=== PATIENT | male | born 1950 | race Caucasian/White ===

== ENCOUNTER 2020-05-03 12:23 | Emergency (ER) | payer BC ==
--- NOTE | 2020-05-03 13:02 | EDM.PDOC ---
ED HPI GENERAL MEDICAL PROBLEM - General Chief Complaint: Respiratory Problem Stated Complaint: BAD COUGH, Time Seen by Provider: 05/03/20 12:25 Source of Information: Reports: Patient History Limitations: Reports: No Limitations - History of Present Illness INITIAL COMMENTS - FREE TEXT/NARRATIVE: Patient presents with cough for a week and fever for a couple days. He vomited once this morning when he ate a pancake. He says he usually gets pneumonia once a year that requires hospitalization. He feels he has pneumonia now. Temp has been up to 101. - Related Data Allergies Allergy/AdvReac Type Severity Reaction Status Date / Time milk Allergy Vomiting Verified 05/03/20 12:46 Past Medical History - Past Surgical History HEENT Surgical History: Reports: Other (See Below) Other HEENT Surgeries/Procedures: Cornea transplant GI Surgical History: Reports: Appendectomy Musculoskeletal Surgical History: Reports: Shoulder Surgery Social & Family History - Tobacco Use Tobacco Use Status *Q: Never Tobacco User - Recreational Drug Use Recreational Drug Use: No ED ROS GENERAL - Review of Systems Review Of Systems: See Below Constitutional: Reports: Fever HEENT: Denies: Throat Pain, Vision Change Respiratory: Reports: Cough. Denies: Shortness of Breath, Wheezing Cardiovascular: Denies: Chest Pain, Lightheadedness, Syncope GI/Abdominal: Reports: Vomiting (just once). Denies: Abdominal Pain, Constipation, Diarrhea : Reports: No Symptoms Musculoskeletal: Reports: No Symptoms Skin: Denies: Cyanosis, Jaundice, Mottled, Pallor, Diaphoresis Neurological: Denies: Confusion, Dizziness, Seizure, Syncope, Trouble Speaking, Difficulty Walking Psychiatric: Denies: Agitation, Anxiety, Confusion ED EXAM, GENERAL - Physical Exam Exam: See Below Exam Limited By: No Limitations General Appearance: Alert, WD/WN, No Apparent Distress Eye Exam: Bilateral Eye: EOMI, Normal Inspection, PERRL Ears: Normal External Exam, Hearing Grossly Normal Nose: Normal Inspection, No Blood Throat/Mouth: Normal Inspection, Normal Lips, Normal Voice, No Airway Compromise Head: Atraumatic, Normocephalic Neck: Normal Inspection, Full Range of Motion Respiratory/Chest: No Respiratory Distress, Lungs Clear, Normal Breath Sounds, No Accessory Muscle Use Cardiovascular: Regular Rate, Rhythm, No Murmur GI/Abdominal: Normal Bowel Sounds, Soft, Non-Tender Back Exam: Normal Inspection, Full Range of Motion. No: CVA Tenderness (L), CVA Tenderness (R) Extremities: Normal Inspection, Normal Range of Motion Neurological: Alert, Oriented, Normal Cognition, No Motor/Sensory Deficits Psychiatric: Normal Affect, Normal Mood Skin Exam: Warm, Dry, Intact, Normal Color, No Rash Course - Vital Signs Last Recorded V/S: Last Vital Signs Temp 99.6 F 05/03/20 12:44 Pulse 99 05/03/20 14:55 Resp 20 05/03/20 14:55 BP 112/65 05/03/20 14:55 Pulse Ox 95 05/03/20 14:55 - Orders/Labs/Meds Orders: Active Orders 24 hr Category Date Time Status CXR [Chest 2V] [CR] Stat Exams 05/03/20 12:55 Ordered CULTURE BLOOD [BC] Stat Lab 05/03/20 13:25 Received CULTURE BLOOD [BC] Stat Lab 05/03/20 13:40 Received Blood Culture x2 Reflex Set [OM.PC] Stat Oth 05/03/20 12:55 Ordered Labs: Laboratory Tests 05/03/20 05/03/20 05/03/20 Range/Units 12:55 13:25 13:25 WBC 9.00 (5.00-10.00) 10^3/uL RBC 5.01 (4.50-6.00) 10^6/uL Hgb 15.7 (13.0-17.0) g/dL Hct 46.9 (40.0-52.0) % MCV 93.6 H (82.0-92.0) fL MCH 31.3 H (27.0-31.0) pg MCHC 33.5 (32.0-36.0) g/dL RDW 12.8 (11.5-14.5) % Plt Count 209 (150-400) 10^3/uL MPV 9.4 (7.4-10.4) fL Immature Gran % (Auto) 0.1 (0.0-5.0) % Neut % (Auto) 86.9 H (50.0-70.0) % Lymph % (Auto) 8.2 L (20.0-40.0) % [place] % (Auto) 4.7 (2.0-8.0) % Eos % (Auto) 0.0 L (1.0-3.0) % Baso % (Auto) 0.1 (0.0-1.0) % Neut # (Auto) 7.82 H (2.50-7.00) 10^3/uL Lymph # (Auto) 0.74 L (1.00-4.00) 10^3/uL [place] # (Auto) 0.42 (0.10-0.80) 10^3/uL Eos # (Auto) 0.00 L (0.10-0.30) 10^3/uL Baso # (Auto) 0.01 (0.00-0.10) 10^3/uL Immature Gran # (Auto) 0.01 (0.00-0.50) 10^3/uL Sodium 140 (136-145) mmol/L Potassium 3.6 (3.3-5.3) mmol/L Chloride 101 (98-115) mmol/L Carbon Dioxide 27.4 (21.0-32.0) mmol/L Anion Gap 15.2 H (5-15) mmol/L BUN 15 (6-25) mg/dL Creatinine 1.27 H (0.51-1.17) mg/dL Est Cr Clr Drug Dosing 50.24 mL/min Estimated GFR (MDRD) 56 mL/min Glucose 103 H (75 - 99) mg/dL Calcium 8.3 L (8.7-10.3) mg/dL Total Bilirubin 0.5 (0.2-1.0) mg/dL AST 28 (15-37) U/L ALT 30 (12-78) U/L Alkaline Phosphatase 86 (46-116) IU/L Total Protein 7.4 (6.4-8.2) g/dL Albumin 3.51 (3.00-4.80) g/dL SARS CoV-2 RNA Rapid TISH Positive H (NEGATIVE) Meds: Medications Discontinued Medications Generic Name Dose Route Start Last Admin Trade Name Freq PRN Reason Stop Dose Admin Azithromycin 750 mg 05/03/20 15:01 Zithromax PO 05/03/20 15:02 ONETIME ONE Cefdinir 1,200 mg 05/03/20 15:01 Omnicef PO 05/03/20 15:02 ONETIME ONE - Re-Assessments/Exams Free Text/Narrative Re-Assessment/Exam: 05/03/20 15:18 CXR shows possible slight infiltrate but radiology read not available due to PACS issues. WBC is 9 with ANC of 7.82. Covid-19 is positive. Sats are running 90-92% on RA. Discussed case with Dr. Wheeler, and findings and treatment options with patient and his . Patient wants to stay at home and quarantine and will return if worsening. [facility] will call him Tuesday morning to check on him and set up home oxygen monitoring if needed. With the possibility of a bacterial pneumonia as well as the covid will treat with antibiotics also. Discussed details with patient and his . He is discharged to home in stable condition. Departure - Departure Time of Disposition: 15:15 Disposition: Home, Self-Care 01 Condition: Good Clinical Impression: COVID-19 CAP (community acquired pneumonia) Qualifiers: Laterality: unspecified laterality Qualified Code(s): J18.9 - Pneumonia, unspecified organism - Discharge Information Referrals: Venita Taveras PA-C [Primary Care Provider] - Forms: ED Department Discharge Additional Instructions: Drink at least 8 cups of water daily. Quarantine until cleared by your PCP. Take the antibiotics as directed. A nurse from the [facility] will call you Tuesday morning to check on you and discuss the option of using home oxygen monitoring. Go to ER or your PCP if worsening. Sepsis Event Note (ED) - Evaluation Sepsis Screening Result: Possible Sepsis Risk - Focused Exam Vital Signs: Vital Signs Temp Pulse Resp BP Pulse Ox 05/03/20 14:55 99 20 112/65 95 05/03/20 12:44 99.6 F 105 H 20 114/74 94 L - My Orders Last 24 Hours: My Active Orders 05/03/20 12:55 CXR [Chest 2V] [CR] Stat Blood Culture x2 Reflex Set [OM.PC] Stat 05/03/20 13:25 CULTURE BLOOD [BC] Stat 05/03/20 13:40 CULTURE BLOOD [BC] Stat - Assessment/Plan Last 24 Hours: My Active Orders 05/03/20 12:55 CXR [Chest 2V] [CR] Stat Blood Culture x2 Reflex Set [OM.PC] Stat 05/03/20 13:25 CULTURE BLOOD [BC] Stat 05/03/20 13:40 CULTURE BLOOD [BC] Stat
[2020-05-03 14:07] LABS: ANION GAP 15.2 mmol/L (5-15)
[2020-05-03] MEDS ORDERED: Cefdinir 300 MG Cap PO ONE (15:01)
[2020-05-03] MEDS ORDERED: Azithromycin 250 MG Tab PO ONE (15:01)
--- NOTE | 2020-05-03 16:07 | CR ---
[id number] RAD/RAD Chest PA And Lateral EXAM: RAD Chest PA And Lateral INDICATION: DYSPNEA. COMPARISON: 2008. DISCUSSION: Cardiomediastinal silhouette is normal in size and contour. Scattered patchy areas of nonmass like linear parenchymal opacification in both lungs most prominent in the mid and lower lungs. If there are signs of infection, this would be consistent with pneumonia, including sequela of Covid 19. No pleural effusion or pneumothorax. IMPRESSION: As above. Zeus Torres MD 05/03/20 2155 Thank you for allowing us to participate in the care of your patient.
== END 2020-05-03 15:30 | disposition home or self-care (01) ==
LOC: KA.ED 12:23
DX: U07.1 COVID-19 (principal); J12.89 Other viral pneumonia; Z91.011 Allergy to milk products; Z90.49 Acquired absence of other specified parts of digestive tract
CPT/HCPCS: 36415; 71046; 80053; 85025; 87040; 99284; 99284-25; A9270-GY; U0002

== ENCOUNTER 2020-05-06 20:45 | Emergency (ER) | payer BC ==
--- NOTE | 2020-05-06 22:53 | EDM.PDOC ---
ED HPI GENERAL MEDICAL PROBLEM - General Chief Complaint: General Stated Complaint: Decreased oxygen level Time Seen by Provider: 05/06/20 21:13 Source of Information: Reports: Patient History Limitations: Reports: No Limitations - History of Present Illness INITIAL COMMENTS - FREE TEXT/NARRATIVE: Patient presents with low oxygen sats and increased respiratory rate. He was in ER 3 days ago and tested positive for Covid but wasn't hypoxemic at that time and chose to go home and see how it went. Today he was set up with home oxygen sensors and for several hours this afternoon and evening was running from 83-87% continuously. He was instructed to come to ER by someone monitoring him from [employer]. He admits to feeling a little more short of breath than before. 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 - Related Data Allergies Allergy/AdvReac Type Severity Reaction Status Date / Time milk Allergy Vomiting Verified 05/06/20 20:57 Home Meds: Home Meds Azithromycin [Zithromax] 250 mg PO DAILY 05/06/20 [History] Cefdinir 300 mg PO BID 05/06/20 [History] Non-Formulary Medication [NF Drug] 20 mg PO DAILY 05/06/20 [History] Simvastatin [Zocor] 10 mg PO DAILY 05/06/20 [History] valACYclovir [Valtrex] 500 mg PO DAILY 05/06/20 [History] Past Medical History Cardiovascular History: Reports: High Cholesterol - Infectious Disease History Other Infectious Disease History: COVID-19 positive - Past Surgical History HEENT Surgical History: Reports: Other (See Below) Other HEENT Surgeries/Procedures: Cornea transplant GI Surgical History: Reports: Appendectomy Musculoskeletal Surgical History: Reports: Shoulder Surgery Social & Family History - Family History Family Medical History: Noncontributory - Tobacco Use Tobacco Use Status *Q: Former Tobacco User Used Tobacco, but Quit: Yes Month/Year Tobacco Last Used: 1969 - Caffeine Use Caffeine Use: Reports: None - Recreational Drug Use Recreational Drug Use: No ED ROS GENERAL - Review of Systems Review Of Systems: See Below Constitutional: Denies: Fever, Weakness HEENT: Denies: Ear Pain, Throat Pain, Vision Change Respiratory: Reports: Shortness of Breath. Denies: Cough Cardiovascular: Denies: Chest Pain, Lightheadedness, Syncope GI/Abdominal: Reports: Diarrhea. Denies: Abdominal Pain, Constipation, Nausea, Vomiting : Denies: Dysuria Musculoskeletal: Denies: Neck Pain, Shoulder Pain, Arm Pain, Back Pain Skin: Denies: Cyanosis, Jaundice, Mottled, Pallor, Diaphoresis Neurological: Denies: Confusion, Dizziness, Headache, Seizure, Syncope, Trouble Speaking, Difficulty Walking Psychiatric: Denies: Agitation, Anxiety, Confusion ED EXAM, GENERAL - Physical Exam Exam: See Below Exam Limited By: No Limitations General Appearance: Alert, WD/WN, No Apparent Distress Eye Exam: Bilateral Eye: EOMI, Normal Inspection, PERRL Ears: Normal External Exam, Hearing Grossly Normal Nose: Normal Inspection, No Blood Throat/Mouth: Normal Inspection, Normal Lips, Normal Voice, No Airway Compromise Head: Atraumatic, Normocephalic Neck: Normal Inspection, Full Range of Motion Respiratory/Chest: No Accessory Muscle Use, Crackles (mild in bilat bases), Wheezing (very slight and occasional) Cardiovascular: Normal Peripheral Pulses, Regular Rate, Rhythm Peripheral Pulses: 2+: Carotid (L), Carotid (R), Radial (L), Radial (R), Posterior Tibial (L), Posterior Tibial (R) GI/Abdominal: Normal Bowel Sounds, Soft, Non-Tender, No Organomegaly, No Distention Back Exam: Normal Inspection, Full Range of Motion. No: CVA Tenderness (L), CVA Tenderness (R) Extremities: Normal Inspection, Normal Range of Motion Neurological: Alert, Oriented, Normal Cognition, No Motor/Sensory Deficits Psychiatric: Normal Affect, Normal Mood Skin Exam: Warm, Dry, Intact, Normal Color, No Rash Course - Vital Signs Last Recorded V/S: Last Vital Signs Temp 98.2 F 05/06/20 22:30 Pulse 90 05/06/20 21:54 Resp 28 H 05/06/20 22:30 BP 142/90 H 05/06/20 21:54 Pulse Ox 96 05/06/20 22:30 - Orders/Labs/Meds Orders: Active Orders 24 hr Category Date Time Status CXR [Chest 2V] [CR] Stat Exams 05/06/20 21:36 Ordered Isolation [COMM] Routine Oth 05/06/20 21:06 Ordered - Re-Assessments/Exams Free Text/Narrative Re-Assessment/Exam: 05/06/20 22:55 CXR shows "extensive bilateral ground glass infiltrates consistent with acute viral infection." I discussed case with Dr. Leong, hospitalist at [facility] who accepted for transfer. Discussed findings and plan with patient who agreed. He is stable at discharge. Departure - Departure Time of Disposition: 22:53 Disposition: DC/[facility]fer to [facility] 02 Condition: Good Clinical Impression: Hypoxemia requiring supplemental oxygen, Pneumonia due to COVID-19 virus - Discharge Information Referrals: Venita Taveras PA-C [Primary Care Provider] - Sepsis Event Note (ED) - Evaluation Sepsis Screening Result: Possible Sepsis Risk - Focused Exam Vital Signs: Vital Signs Temp Pulse Resp BP Pulse Ox 05/06/20 22:30 98.2 F 28 H 96 05/06/20 21:54 90 19 142/90 H 96 05/06/20 21:15 85 30 H 142/87 H 95 05/06/20 20:55 92 28 H 148/97 H 93 L 05/06/20 20:50 97.6 F 92 28 H 166/96 H 83 L - My Orders Last 24 Hours: My Active Orders 05/06/20 21:06 Isolation [COMM] Routine 05/06/20 21:36 CXR [Chest 2V] [CR] Stat - Assessment/Plan Last 24 Hours: My Active Orders 05/06/20 21:06 Isolation [COMM] Routine 05/06/20 21:36 CXR [Chest 2V] [CR] Stat
--- NOTE | 2020-05-07 08:10 | CR ---
[id number] RAD/RAD Chest PA And Lateral EXAM: FRONTAL AND LATERAL CHEST INDICATION: HYPOXEMIA, TACHYPNEA, COVID+ COMPARISON: May 03, 2020. DISCUSSION: Patchy mild to moderate bilateral infiltrates are stable to minimally increased. There is mild cardiomegaly with interval development of mild central vascular congestion and trace bilateral effusions. IMPRESSION: 1. Mild to moderate bilateral infiltrates are stable to slightly increased. 2. Cardiomegaly with development of mild central vascular congestion and trace bilateral effusions. Daniel Nino MD 05/07/20 0808 Thank you for allowing us to participate in the care of your patient.
== END 2020-05-06 22:38 ==
LOC: KA.ED 20:45
DX: U07.1 COVID-19 (principal); J12.89 Other viral pneumonia; R09.02 Hypoxemia; E78.00 Pure hypercholesterolemia, unspecified; Z91.011 Allergy to milk products; Z79.899 Other long term (current) drug therapy; Z87.891 Personal history of nicotine dependence; Z90.49 Acquired absence of other specified parts of digestive tract
CPT/HCPCS: 71046; 99284; 99285-25